=== PATIENT | female | born 1990 | race Caucasian/White ===

== ENCOUNTER 2021-07-21 22:00 | Emergency (ER) | payer MEDICAID ==
[~2021-07-21] VITALS: Ht 175.3 cm; Wt 111.9 kg
[2021-07-21] MEDS ORDERED: IBUPROFEN 800MG TABLET PO ONE (23:00)
[2021-07-21] MEDS ORDERED: IBUP-2030 MT (23:05)
[2021-07-21 23:20] VITALS: BP 149/65
== END 2021-07-22 00:24 | disposition home or self-care (01) ==
LOC: ER 22:00
DX: S60.222A Contusion of left hand, initial encounter (principal); W18.39XA Other fall on same level, initial encounter; Y93.89 Activity, other specified; Y92.89 Other specified places as the place of occurrence of the external cause; Y99.8 Other external cause status
CPT/HCPCS: 29125; 73110; 73130; 81025; 99284